=== PATIENT | male | born 1960 | race Caucasian/White ===

== ENCOUNTER 2018-12-17 14:31 | Emergency (ER) | payer BC ==
[~2018-12-17] VITALS: Ht 177.8 cm; Wt 93.0 kg
[2018-12-17 16:18] VITALS: BP 135/82
== END 2018-12-17 16:18 | disposition home or self-care (01) ==
LOC: ED 14:31
DX: F51.04 Psychophysiologic insomnia (principal); I10 Essential (primary) hypertension; Z76.0 Encounter for issue of repeat prescription